=== PATIENT | female | born 1945 | race Caucasian/White ===

== ENCOUNTER 2023-09-16 08:41 | Inpatient (IN) | payer OTHER ==
[~2023-09-16] VITALS: Ht 172.7 cm; Wt 81.6 kg
[2023-09-16] VITALS (18 sets, daily range): BP systolic 92–128; BP diastolic 40–74; PULSE 59–99; RESP 6–16; TEMP 97.6–98.5; O2SAT 87–95
[~2023-09-16 08:41] MED LIST: AMLO1TAB23 PO; ATOR10TA52 PO; CHOL100055 PO; CITA10TA8 PO; COEN200C9 PO; FAMO-68 PO; FENO134C19 PO; LOSA100T25 PO; MAGN250T3 PO; [UNRECOGNIZED DRUG - CODE] PO
[2023-09-16] MEDS ORDERED: ceFAZolin 2 GM/D5W100ml 0 ML IV ONE (08:56)
[2023-09-16] MEDS ORDERED: CELECOXIB 100 MG CAP ONE (08:56)
[2023-09-16] MEDS ORDERED: ACETAMINOPHEN IV 100 ML IV ONE (08:57)
[2023-09-16] MEDS ORDERED: VANCOMYCIN HCL 1000 MG VL ONE ×2 (08:57→09:12)
[2023-09-16] MEDS ORDERED: TRANEXAMIC ACID 20 ML ONE (09:06)
[2023-09-16] MEDS ORDERED: PREGABALIN CAPSULE 75 MG CAP ONE (09:28)
[2023-09-16] MEDS ORDERED: fentaNYL CITRATE 100 MCG/2 ML VL ONE (09:38)
[2023-09-16] MEDS ORDERED: MIDAZOLAM HCL 2MG/2ML 2ml VIAL (1mg/ml) ONE (09:38)
[2023-09-16] MEDS ORDERED: MORPHINE SULF PF 5 MG/10 ML VIAL ONE (09:38)
[2023-09-16] MEDS ORDERED: TETRACAINE 1% INJ 2 ML VIAL IJ ONE (09:40)
[2023-09-16] MEDS ORDERED: BUPIVACAINE HCL 50 ML ONE (09:55)
[2023-09-16] MEDS ORDERED: DexAMETHasone SOD PHOS 10MG/1ML VIAL INJ ONE (10:28)
[2023-09-16] MEDS ORDERED: PROPOFOL 10 MG/ML 20 ML IV ONE (10:28)
[2023-09-16] MEDS ORDERED: ONDANSETRON HCL 4 MG/2 ML VIAL IV PRN ×3 (10:45→12:00)
[2023-09-16] MEDS ORDERED: ePHEDrine SULFATE 50 MG/ML AMP IV PRN (10:45)
[2023-09-16] MEDS ORDERED: HYDROmorphone HCL 2 MG/ML VL/or syr IV PRN ×2 (10:45→12:00)
[2023-09-16] MEDS ORDERED: CELECOXIB 100 MG CAP PO ONE (10:45)
[2023-09-16] MEDS ORDERED: ACETAMINOPHEN IV 1000 MG/100ML (10MG/ML) IV ONE (10:45)
[2023-09-16] MEDS ORDERED: DexAMETHasone SOD PHOS 10MG/1ML VIAL INJ IV PRN (10:45)
[2023-09-16] MEDS ORDERED: NALOXONE HCL 0.4 MG/ML VIAL IV PRN (10:45)
[2023-09-16] MEDS ORDERED: MIDAZOLAM HCL 2MG/2ML 2ml VIAL (1mg/ml) IV PRN (10:45)
[2023-09-16] MEDS ORDERED: LABETALOL HCL 5 MG/ML 4ML SYRINGE IV PRN (10:45)
[2023-09-16] MEDS ORDERED: PREGABALIN CAPSULE 75 MG CAP PO ONE (10:45)
[2023-09-16] MEDS ORDERED: NITROGLYCERIN 0.4 MG SL TAB SL PRN (12:00)
[2023-09-16] MEDS ORDERED: MORPHINE SULFATE INJ 2 MG/ml SYRG IV PRN (12:00)
[2023-09-16] MEDS: LACTATED RINGER'S 1,000 ML IV SCH ×2 (12:00→15:05)
[2023-09-16] MEDS ORDERED: DexAMETHasone SOD PHOS 4 MG/1ML SDV INJ ONE (13:11)
[2023-09-16] MEDS: NOREPINEPHRINE 8 MG/250ML KIT 250 ML IV SCH (16:00)
[2023-09-16] MEDS: ACCU-CHEK COMFORT CURVE STRIP VI SCH (17:00)
[2023-09-16] MEDS ORDERED: FENOFIBRATE 134 MG PO SCH (18:00)
[2023-09-16] MEDS: SODIUM CHLOR 0.9% PF (SALINE LOCK) 10ML VIAL/SYR IV SCH ×2 (18:53→22:00)
[2023-09-16] MEDS: ATORVASTATIN 20 MG TAB PO SCH (19:55)
[2023-09-16] MEDS: DOCUSATE SOD 100 MG CAP PO SCH (21:28)
[2023-09-16] MEDS: VANCOMYCIN 1GM/250ML 250 ML IV SCH (21:28)
[2023-09-16] MEDS: FAMOTIDINE 20 MG TAB PO SCH (21:29)
[2023-09-17] VITALS (78 sets, daily range): BP systolic 86–146; BP diastolic 36–97; PULSE 54–98; RESP 7–35; TEMP 97.5–98.2; O2SAT 89–99
[2023-09-17] MEDS: LACTATED RINGER'S 1,000 ML IV SCH (02:23)
[2023-09-17 04:57] LABS: Hematocrit 38.5 % (36.0-46.0); Hemoglobin 12.9 g/dL (12.2-16.2)
[2023-09-17] MEDS: OXYCODONE W/ ACETAMINOPHEN 5/325MG TABLET PO PRN ×3 (05:15→20:17)
[2023-09-17] MEDS: ACCU-CHEK COMFORT CURVE STRIP VI SCH ×3 (05:23→11:30)
[2023-09-17] MEDS: SODIUM CHLOR 0.9% PF (SALINE LOCK) 10ML VIAL/SYR IV SCH ×2 (06:00→14:00)
[2023-09-17] MEDS: FAMOTIDINE 20 MG TAB PO SCH ×2 (09:44→20:18)
[2023-09-17] MEDS: DOCUSATE SOD 100 MG CAP PO SCH ×2 (09:44→20:17)
[2023-09-17] MEDS: CHOLECALCIFEROL (VITD3) 1,000UNIT=25mCg TAB PO SCH (09:44)
[2023-09-17] MEDS: CITALOPRAM HYDROBR 20 MG TAB PO SCH (09:46)
[2023-09-17] MEDS: ENOXAPARIN SOD 40 MG/0.4 ML SYRINGE SC SCH (09:47)
[2023-09-17] MEDS: VANCOMYCIN 1GM/250ML 250 ML IV SCH (09:58)
[2023-09-17] MEDS ORDERED: VITAMIN A PO SCH (10:00)
[2023-09-17] MEDS ORDERED: LOSARTAN POTASSIUM PO SCH (10:00)
[2023-09-17] MEDS ORDERED: amLODIPine BESYLATE 5 MG TAB PO SCH (10:00)
[2023-09-17] MEDS ORDERED: HYDROCHLOROTHIAZIDE PO SCH (10:00)
[2023-09-17] MEDS ORDERED: COENZYME Q10 200 MG PO SCH (10:00)
[2023-09-17] MEDS: MAGNESIUM PO SCH (10:00)
[2023-09-17] MEDS ORDERED: SODIUM CHLORIDE 0.9% 1,000 ML IV ONE (13:00)
[2023-09-17] MEDS ORDERED: ACETAMINOPHEN 325 MG TAB PO PRN (13:00)
[2023-09-17 13:30] LABS: Basophils # (auto) 0.1 10 ^3/uL (0-0.2); Eosinophils # (auto) 0 10 ^3/uL (0-0.8); Eosinophils % (auto) 0.1 % (0.0-7.0); Hematocrit 38.2 % (36.0-46.0); Hemoglobin 12.6 g/dL (12.2-16.2); Lymphocytes # (auto) 1.5 10 ^3/uL (0.4-5.4); Lymphocytes % (auto) 12.1 % (10.0-50.0); Mean Corpuscular Hemoglobin 30.5 pg (28.0-32.0); Mean Corpuscular Volume 92.5 fL (80.0-100.0); Monocytes # (auto) 1.2 10 ^3/uL (0-1.3); Monocytes % (auto) 9.2 % (0.0-12.0); Neutrophils # (auto) 9.8 10 ^3/uL (1.6-8.6); Neutrophils % (auto) 77.6 % (37.0-80.0); Nucleated Red Blood Cells % 0.1 %; Red Blood Cells 4.13 10^6/uL (4.0-5.20); Red Cell Distribution Width 13.2 % (11.8-14.3); White Blood Cell 12.7 10^3/uL (4.4-10.8)
[2023-09-17] MEDS: SODIUM CHLORIDE 0.9% 1,000 ML IV SCH (14:00)
[2023-09-17 14:09] LABS: Chloride 105 mmol/L (98-107); Potassium 3.5 mmol/L (3.5-5.1); Sodium 138 mmol/L (136-145)
[2023-09-17 14:10] LABS: Anion Gap 6 (5-15); Carbon Dioxide 27 mmol/L (20-30)
[2023-09-17 14:11] LABS: Calcium 9.4 mg/dL (8.5-10.1)
[2023-09-17 14:15] LABS: Glucose 107 mg/dL (74-106)
[2023-09-17 14:16] LABS: BUN/Creatinine Ratio 12.2 (10.0-20.0); Blood Urea Nitrogen 10 mg/dL (9-23)
[2023-09-17 14:41] LABS: Albumin 3.8 g/dL (3.2-4.8); Bilirubin, Direct 0.3 mg/dL (<0.3); Bilirubin, Total 0.7 mg/dL (0.2-1.0); Total Protein 6.1 g/dL (5.7-8.2)
[2023-09-17] MEDS: NOREPINEPHRINE 8 MG/250ML KIT 250 ML IV SCH (15:39)
[2023-09-17] MEDS: ATORVASTATIN 20 MG TAB PO SCH (20:19)
[2023-09-17 22:52] LABS: Urine Bacteria NONE SEEN /hpf (None Seen); Urine Blood Negative /uL (Negative); Urine Clarity Clear (Clear); Urine Color Colorless (Yellow); Urine Protein, UAD Negative (Negative); Urine Specific Gravity 1.007 (1.001-1.035); Urine Urobilinogen Normal (Negative); Urine WBC <1 /hpf (0 - 5)
[2023-09-18] VITALS (45 sets, daily range): BP systolic 86–154; BP diastolic 37–87; PULSE 63–140; RESP 11–28; TEMP 97.7–98.9; O2SAT 89–97
[2023-09-18] MEDS: SODIUM CHLORIDE 0.9% 1,000 ML IV SCH ×3 (02:06→20:35)
[2023-09-18] MEDS: SODIUM CHLOR 0.9% PF (SALINE LOCK) 10ML VIAL/SYR IV SCH ×4 (02:10→22:27)
[2023-09-18 05:19] LABS: Basophils # (auto) 0 10 ^3/uL (0-0.2); Basophils % (auto) 0.3 % (0.0-2.0); Eosinophils # (auto) 0 10 ^3/uL (0-0.8); Eosinophils % (auto) 0.3 % (0.0-7.0); Hematocrit 35.9 % (36.0-46.0); Hemoglobin 12.1 g/dL (12.2-16.2); Lymphocytes % (auto) 9.9 % (10.0-50.0); Mean Corpuscular Hemoglobin 30.8 pg (28.0-32.0); Mean Corpuscular Hgb Conc. 33.6 g/dL (32.0-36.0); Mean Corpuscular Volume 91.7 fL (80.0-100.0); Monocytes # (auto) 0.8 10 ^3/uL (0-1.3); Monocytes % (auto) 7.8 % (0.0-12.0); Neutrophils # (auto) 8.3 10 ^3/uL (1.6-8.6); Neutrophils % (auto) 81.7 % (37.0-80.0); Red Blood Cells 3.91 10^6/uL (4.0-5.20); Red Cell Distribution Width 13.2 % (11.8-14.3); White Blood Cell 10.1 10^3/uL (4.4-10.8)
[2023-09-18 05:34] LABS: Anion Gap 7 (5-15); Carbon Dioxide 26 mmol/L (20-30); Chloride 106 mmol/L (98-107); Potassium 3.7 mmol/L (3.5-5.1); Sodium 139 mmol/L (136-145)
[2023-09-18 05:36] LABS: Calcium 8.3 mg/dL (8.7-10.4)
[2023-09-18 05:40] LABS: BUN/Creatinine Ratio 15.1 (10.0-20.0); Blood Urea Nitrogen 11 mg/dL (9-23); Glucose 106 mg/dL (74-106)
[2023-09-18] MEDS ORDERED: AMIODARONE BOLUS KIT 100 ML IV ONE (09:00)
[2023-09-18] MEDS ORDERED: AMIODARONE 450mg/250ml AE 250 ML IV SCH (09:15)
[2023-09-18] MEDS: MAGNESIUM PO SCH (10:00)
[2023-09-18] MEDS: CITALOPRAM HYDROBR 20 MG TAB PO SCH (10:00)
[2023-09-18] MEDS: FAMOTIDINE 20 MG TAB PO SCH ×2 (10:48→22:27)
[2023-09-18] MEDS: DOCUSATE SOD 100 MG CAP PO SCH ×2 (10:48→22:27)
[2023-09-18] MEDS: ENOXAPARIN SOD 40 MG/0.4 ML SYRINGE SC SCH (10:48)
[2023-09-18] MEDS: CHOLECALCIFEROL (VITD3) 1,000UNIT=25mCg TAB PO SCH (10:49)
[2023-09-18] MEDS: OXYCODONE W/ ACETAMINOPHEN 5/325MG TABLET PO PRN (11:05)
[2023-09-18] MEDS: NOREPINEPHRINE 8 MG/250ML KIT 250 ML IV SCH (15:45)
[2023-09-18] MEDS: AMIODARONE 450mg/250ml AE 250 ML IV SCH (17:30)
[2023-09-18] MEDS: ATORVASTATIN 20 MG TAB PO SCH (17:57)
[2023-09-19] VITALS (11 sets, daily range): BP systolic 135–150; BP diastolic 71–98; PULSE 66–124; RESP 17–26; TEMP 97.7–98.7; O2SAT 90–97
[2023-09-19] MEDS ORDERED: METOPROLOL TARTRATE 1MG/1ML-5ML VIAL IV PRN (02:30)
[2023-09-19] MEDS ORDERED: HYALURONIDASE 150 UNIT/1 ML SUBCUT ONE (05:30)
[2023-09-19] MEDS: SODIUM CHLOR 0.9% PF (SALINE LOCK) 10ML VIAL/SYR IV SCH ×3 (05:48→22:25)
[2023-09-19 06:16] LABS: Basophils # (auto) 0.1 10 ^3/uL (0-0.2); Basophils % (auto) 0.8 % (0.0-2.0); Eosinophils # (auto) 0 10 ^3/uL (0-0.8); Eosinophils % (auto) 0.2 % (0.0-7.0); Hematocrit 38.6 % (36.0-46.0); Hemoglobin 12.7 g/dL (12.2-16.2); Lymphocytes % (auto) 9.4 % (10.0-50.0); Mean Corpuscular Hemoglobin 30.3 pg (28.0-32.0); Mean Corpuscular Hgb Conc. 32.9 g/dL (32.0-36.0); Monocytes # (auto) 0.7 10 ^3/uL (0-1.3); Monocytes % (auto) 6.6 % (0.0-12.0); Neutrophils # (auto) 9.3 10 ^3/uL (1.6-8.6); Nucleated Red Blood Cells % 0.1 %; Red Cell Distribution Width 13.3 % (11.8-14.3); White Blood Cell 11.2 10^3/uL (4.4-10.8)
[2023-09-19 06:17] LABS: Calcium 9.1 mg/dL (8.7-10.4); Chloride 103 mmol/L (98-107); Potassium 3.3 mmol/L (3.5-5.1); Sodium 135 mmol/L (136-145)
[2023-09-19 06:18] LABS: Anion Gap 9 (5-15); Carbon Dioxide 23 mmol/L (20-30)
[2023-09-19 06:23] LABS: BUN/Creatinine Ratio 9.9 (10.0-20.0); Blood Urea Nitrogen 7 mg/dL (9-23); Glucose 232 mg/dL (74-106)
[2023-09-19] MEDS: CHOLECALCIFEROL (VITD3) 1,000UNIT=25mCg TAB PO SCH (09:22)
[2023-09-19] MEDS: CITALOPRAM HYDROBR 20 MG TAB PO SCH (09:22)
[2023-09-19] MEDS: FAMOTIDINE 20 MG TAB PO SCH ×2 (09:23→22:24)
[2023-09-19] MEDS: ENOXAPARIN SOD 40 MG/0.4 ML SYRINGE SC SCH (09:23)
[2023-09-19] MEDS: DOCUSATE SOD 100 MG CAP PO SCH ×2 (09:23→22:24)
[2023-09-19] MEDS: AMIODARONE 450mg/250ml AE 250 ML IV SCH (09:27)
[2023-09-19] MEDS ORDERED: METOPROLOL TARTRATE 25 MG TAB PO SCH (10:00)
[2023-09-19] MEDS ORDERED: POTASSIUM CHL 20MEQ/100ML 100 ML IV ONE (10:00)
[2023-09-19] MEDS: MAGNESIUM PO SCH (10:00)
[2023-09-19] MEDS: ATORVASTATIN 20 MG TAB PO SCH (22:24)
[2023-09-19] MEDS: METOPROLOL TARTRATE 25 MG TAB PO SCH (22:25)
[2023-09-20] VITALS (8 sets, daily range): BP systolic 119–151; BP diastolic 46–95; PULSE 71–93; RESP 18–21; TEMP 98.3–98.9; O2SAT 94–96
[2023-09-20 05:34] LABS: Basophils # (auto) 0 10 ^3/uL (0-0.2); Basophils % (auto) 0.4 % (0.0-2.0); Eosinophils # (auto) 0.1 10 ^3/uL (0-0.8); Eosinophils % (auto) 1.2 % (0.0-7.0); Hemoglobin 11.8 g/dL (12.2-16.2); Lymphocytes % (auto) 9.8 % (10.0-50.0); Mean Corpuscular Hemoglobin 30.7 pg (28.0-32.0); Mean Corpuscular Hgb Conc. 33.7 g/dL (32.0-36.0); Mean Corpuscular Volume 90.9 fL (80.0-100.0); Monocytes % (auto) 9.2 % (0.0-12.0); Neutrophils # (auto) 8.4 10 ^3/uL (1.6-8.6); Neutrophils % (auto) 79.4 % (37.0-80.0); Red Blood Cells 3.85 10^6/uL (4.0-5.20); White Blood Cell 10.6 10^3/uL (4.4-10.8)
[2023-09-20 05:46] LABS: Anion Gap 7 (5-15); Carbon Dioxide 23 mmol/L (20-30); Chloride 109 mmol/L (98-107); Potassium 3.3 mmol/L (3.5-5.1); Sodium 139 mmol/L (136-145)
[2023-09-20 05:47] LABS: Calcium 8.8 mg/dL (8.7-10.4)
[2023-09-20 05:52] LABS: BUN/Creatinine Ratio 13.2 (10.0-20.0); Blood Urea Nitrogen 10 mg/dL (9-23); Glucose 99 mg/dL (74-106)
[2023-09-20] MEDS: SODIUM CHLOR 0.9% PF (SALINE LOCK) 10ML VIAL/SYR IV SCH ×2 (05:53→08:04)
[2023-09-20] MEDS: METOPROLOL TARTRATE 25 MG TAB PO SCH (09:33)
[2023-09-20] MEDS: DOCUSATE SOD 100 MG CAP PO SCH (09:33)
[2023-09-20] MEDS: CHOLECALCIFEROL (VITD3) 1,000UNIT=25mCg TAB PO SCH (09:34)
[2023-09-20] MEDS: CITALOPRAM HYDROBR 20 MG TAB PO SCH (09:34)
[2023-09-20] MEDS: FAMOTIDINE 20 MG TAB PO SCH (09:34)
[2023-09-20] MEDS: ENOXAPARIN SOD 40 MG/0.4 ML SYRINGE SC SCH (09:36)
[2023-09-20] MEDS: MAGNESIUM PO SCH (10:00)
[2023-09-20] MEDS ORDERED: LOSARTAN POTASSIUM 50 MG TAB PO SCH (10:30)
[2023-09-20] MEDS ORDERED: POTASSIUM CHL 20MEQ/100ML 100 ML IV ONE (10:30)
== END 2023-09-20 16:37 | disposition home health service (06) | DRG 470 ==
LOC: SUR 08:41 → TELE 12:04 → DOU IN ICU 18:29 → ICU CENTRL 09-17 05:15 → TELE-EAST 09-19 02:36
PROVIDERS: ADMIT Orthopaedic Surgery Adult Reconstructive Orthopaedic Surgery; ATTEND Orthopaedic Surgery Adult Reconstructive Orthopaedic Surgery
PROC: 0SRR0JZ Replacement of Right Hip Joint, Femoral Surface with Synthetic Substitute, Open Approach (ICD-10-PCS; principal; 2023-09-17)
PROC: 8E0YXBZ Computer Assisted Procedure of Lower Extremity (ICD-10-PCS; 2023-09-17)
DX: M16.11 Unilateral primary osteoarthritis, right hip (principal); I10 Essential (primary) hypertension; E86.1 Hypovolemia; E78.5 Hyperlipidemia, unspecified; F32.9 Major depressive disorder, single episode, unspecified; F41.9 Anxiety disorder, unspecified; I48.0 Paroxysmal atrial fibrillation; I95.9 Hypotension, unspecified; Z82.49 Family history of ischemic heart disease and other diseases of the circulatory system; E87.6 Hypokalemia
CPT/HCPCS: 36415; 72170; 73501; 80048; 80076; 81001; 82962; 83735; 85014; 85018; 85025; 86850; 86900; 86901; 87040; 87081; 87086; 93306; 97110; 97116; 97163; 97530; C1776; G0378; J0131; J1100; J2250; J2704; J3470; J3480; J3490

== ENCOUNTER 2024-04-27 07:24 | Inpatient (IN) | payer OTHER ==
[~2024-04-27] VITALS: Ht 172.7 cm; Wt 101.8 kg
[2024-04-27] VITALS (12 sets, daily range): BP systolic 76–115; BP diastolic 41–73; PULSE 66–92; RESP 12–18; TEMP 98–98.5; O2SAT 94–98
[2024-04-27] MEDS: CELECOXIB 100 MG CAP PO ONE (07:52)
[2024-04-27] MEDS: PREGABALIN CAPSULE 75 MG CAP PO ONE (07:52)
[2024-04-27] MEDS: ACETAMINOPHEN IV 1000 MG/100ML (10MG/ML) IV ONE (07:52)
[2024-04-27] MEDS: TRANEXAMIC ACID 20 ML ONE (08:44)
[2024-04-27] MEDS: VANCOMYCIN HCL 1000 MG VL ONE ×2 (08:46→08:58)
[2024-04-27] MEDS: ACETAMINOPHEN IV 100 ML IV ONE (08:49)
[2024-04-27] MEDS: CELECOXIB 100 MG CAP ONE (08:49)
[2024-04-27] MEDS: PREGABALIN CAPSULE 75 MG CAP ONE (08:50)
[2024-04-27] MEDS ORDERED: KETAMINE 50mg/ML 1ml syringe ONE (08:54)
[2024-04-27] MEDS ORDERED: PROPOFOL 10 MG/ML 20 ML IV ONE (08:55)
[2024-04-27] MEDS ORDERED: ONDANSETRON HCL 4 MG/2 ML VIAL ONE (08:55)
[2024-04-27] MEDS ORDERED: SODIUM CHLORIDE LOCK 10 ML ONE (08:55)
[2024-04-27] MEDS ORDERED: MIDAZOLAM HCL 2MG/2ML 2ml VIAL (1mg/ml) ONE (08:55)
[2024-04-27] MEDS ORDERED: fentaNYL CITRATE 100 MCG/2 ML VL ONE (08:55)
[2024-04-27] MEDS: BUPIVACAINE HCL 50 ML ONE (09:18)
[2024-04-27] MEDS: TETRACAINE 1% INJ 2 ML VIAL IJ ONE (09:34)
[2024-04-27] MEDS: KETOROLAC TROMETH 30 MG/ML 1ML VIAL ONE (10:59)
[2024-04-27] MEDS: MORPHINE SULF PF 5 MG/10 ML VIAL ONE (10:59)
[2024-04-27] MEDS ORDERED: MORPHINE SULFATE INJ 2 MG/ml SYRG IV PRN (11:15)
[2024-04-27] MEDS ORDERED: ONDANSETRON HCL 4 MG/2 ML VIAL IV PRN (11:15)
[2024-04-27] MEDS: LACTATED RINGER'S 1,000 ML IV SCH (11:15)
[2024-04-27] MEDS ORDERED: NITROGLYCERIN 0.4 MG SL TAB SL PRN (11:15)
[2024-04-27] MEDS ORDERED: HYDROmorphone HCL 2 MG/ML VL/or syr IV PRN (11:15)
[2024-04-27] MEDS: SODIUM CHLOR 0.9% PF (SALINE LOCK) 10ML VIAL/SYR IV SCH (14:00)
[2024-04-27] MEDS: SODIUM CHLORIDE 0.9% 1,000 ML IV ONE ×3 (14:30→19:20)
[2024-04-27] MEDS: ePHEDrine SULFATE 50 MG/ML AMP ONE (14:42)
[2024-04-27] MEDS: ePHEDrine SULFATE 50 MG/ML AMP IV PRN (14:45)
[2024-04-27] MEDS: VANCOMYCIN 1GM/200ML 200 ML IV SCH (21:08)
[2024-04-27] MEDS: DOCUSATE SOD 100 MG CAP PO SCH (21:09)
[2024-04-28] VITALS (53 sets, daily range): BP systolic 82–132; BP diastolic 42–76; PULSE 61–95; RESP 12–22; TEMP 98.3–99; O2SAT 91–100
[2024-04-28 01:31] LABS: Basophils # (auto) 0 10 ^3/uL (0-0.2); Basophils % (auto) 0.2 % (0.0-2.0); Eosinophils # (auto) 0 10 ^3/uL (0-0.8); Hematocrit 36.9 % (36.0-46.0); Hemoglobin 12.3 g/dL (12.2-16.2); Lymphocytes # (auto) 0.9 10 ^3/uL (0.4-5.4); Lymphocytes % (auto) 9.4 % (10.0-50.0); Mean Corpuscular Hgb Conc. 33.4 g/dL (32.0-36.0); Mean Corpuscular Volume 92.8 fL (80.0-100.0); Monocytes # (auto) 0.9 10 ^3/uL (0-1.3); Monocytes % (auto) 8.7 % (0.0-12.0); Neutrophils # (auto) 8.2 10 ^3/uL (1.6-8.6); Neutrophils % (auto) 81.7 % (37.0-80.0); Red Blood Cells 3.98 10^6/uL (4.0-5.20); Red Cell Distribution Width 14.3 % (11.8-14.3)
[2024-04-28 01:39] LABS: Chloride 113 mmol/L (98-107); Sodium 143 mmol/L (136-145)
[2024-04-28 01:40] LABS: Anion Gap 6 (5-15); Calcium 8.6 mg/dL (8.7-10.4); Carbon Dioxide 24 mmol/L (20-30)
[2024-04-28 01:45] LABS: BUN/Creatinine Ratio 10.5 (10.0-20.0); Blood Urea Nitrogen 9 mg/dL (9-23); Glucose 121 mg/dL (74-106)
[2024-04-28 01:46] LABS: INR 1.1 (0.9-1.15); Prothrombin Time 11.6 sec (9.3-11.8)
[2024-04-28] MEDS: NOREPINEPHRINE 8 MG/250ML KIT 250 ML IV SCH (04:31)
[2024-04-28 07:09] LABS: Hematocrit 37.9 % (36.0-46.0); Hemoglobin 12.3 g/dL (12.2-16.2)
[2024-04-28 07:31] LABS: Alanine Aminotransferase 18 U/L (7-40); Albumin 3.4 g/dL (3.2-4.8); Alkaline Phosphatase 36 U/L (46-116); Anion Gap 4 (5-15); Aspartate Aminotransferase 26 U/L (13-40); BUN/Creatinine Ratio 8.7 (10.0-20.0); Blood Urea Nitrogen 6 mg/dL (9-23); Calcium 8.5 mg/dL (8.5-10.1); Carbon Dioxide 24 mmol/L (20-30); Chloride 111 mmol/L (98-107); Glucose 104 mg/dL (74-106); Potassium 3.8 mmol/L (3.5-5.1); Sodium 139 mmol/L (136-145)
[2024-04-28 07:32] LABS: Bilirubin, Total 0.7 mg/dL (0.2-1.0); Total Protein 5.6 g/dL (5.7-8.2)
[2024-04-28] MEDS: CITALOPRAM HYDROBR 20 MG TAB PO SCH (09:27)
[2024-04-28] MEDS: ENOXAPARIN SOD 40 MG/0.4 ML SYRINGE SC SCH (09:27)
[2024-04-28] MEDS: FAMOTIDINE 20 MG TAB PO SCH (09:28)
[2024-04-28] MEDS: CHOLECALCIFEROL (VITD3) 1,000UNIT=25mCg TAB PO SCH (09:28)
[2024-04-28] MEDS: levoFLOXacin 750MG 150 ML IV SCH (09:29)
[2024-04-28] MEDS: OXYCODONE W/ ACETAMINOPHEN 5/325MG TABLET PO PRN (12:56)
[2024-04-29 06:30] VITALS: BP 138/74; PULSE 109; RESP 18; TEMP 98.2; O2SAT 93
[2024-04-29 06:31] VITALS: BP 124/70; PULSE 107; RESP 16; TEMP 98.1; O2SAT 90
[2024-04-29 08:00] VITALS: PULSE 93
[2024-04-29 08:24] LABS: Hematocrit 38.3 % (36.0-46.0); Hemoglobin 12.9 g/dL (12.2-16.2)
[2024-04-29 08:58] VITALS: BP 143/69; PULSE 125; RESP 18; TEMP 97.6; O2SAT 88
[2024-04-29 13:00] VITALS: BP 149/73; PULSE 91; RESP 20; TEMP 98.6; O2SAT 91
== END 2024-04-29 15:27 | disposition home health service (06) | DRG 470 ==
LOC: SUR 07:24 → TELE 11:15 → TELE-WESTW 18:33 → ICU WEST 04-28 00:55 → CENTRAL 04-28 13:38
PROVIDERS: ADMIT Orthopaedic Surgery Adult Reconstructive Orthopaedic Surgery; ATTEND Orthopaedic Surgery Adult Reconstructive Orthopaedic Surgery
PROC: 8E0YXBZ Computer Assisted Procedure of Lower Extremity (ICD-10-PCS; 2024-04-27)
PROC: 0SRB0JZ Replacement of Left Hip Joint with Synthetic Substitute, Open Approach (ICD-10-PCS; principal; 2024-04-27 09:41)
DX: M16.12 Unilateral primary osteoarthritis, left hip (principal); E55.9 Vitamin D deficiency, unspecified; I10 Essential (primary) hypertension; K21.9 Gastro-esophageal reflux disease without esophagitis; E78.5 Hyperlipidemia, unspecified; F32.9 Major depressive disorder, single episode, unspecified; Z82.49 Family history of ischemic heart disease and other diseases of the circulatory system; Z88.0 Allergy status to penicillin; Z88.2 Allergy status to sulfonamides; Z79.899 Other long term (current) drug therapy
CPT/HCPCS: 36415; 72170; 80048; 80053; 85014; 85018; 85025; 85610; 86850; 86900; 86901; 87081; 97110; 97116; 97163; G0378; J0131; J1885; J1956; J2250; J2405; J2704; J3490